=== PATIENT | male | born 1995 | race African-American/Black ===

== ENCOUNTER 2023-10-09 08:00 | Emergency (ER) | payer OTHER, SELFPAY | END 2023-10-09 10:33 | disposition home or self-care (01) | LOC: CSHERS 08:00 | DX: K40.90 Unilateral inguinal hernia, without obstruction or gangrene, not specified as recurrent (principal); F17.210 Nicotine dependence, cigarettes, uncomplicated | CPT/HCPCS: 76870; 83605; 93976 ==